=== PATIENT | female | born 1980 | race Hispanic/Latino ===

== ENCOUNTER 2020-09-29 10:00 | Inpatient (IN) | payer OTHER ==
[~2020-09-29] VITALS: Ht 149.9 cm; Wt 69.4 kg
[2020-10-03] MEDS ORDERED: CEFAZOLIN SODIUM 1 GM VIAL IVP PRN (05:45)
[2020-10-03 06:49] LABS: HEMATOCRIT 33.7 % (36-48); MEAN CORPUSCULAR HEMOGLOBIN 29.5 pg (27.0-33.0); MEAN CORPUSCULAR HGB CONC 32.3 g/dL (32.0-36.0); MEAN CORPUSCULAR VOLUME 91.3 fL (79-99); RED BLOOD CELL COUNT(AUTO) 3.69 MIL/uL (4.00-5.50); RED CELL DISTRIBUTION WIDTH 16.2 % (11.0-15.5); WHITE BLOOD COUNT (AUTO) 11.8 K/uL (4.8-10.8)
[2020-10-03 06:53] VITALS: BP 102/58
[2020-10-03] MEDS: LACTATED RINGERS 1000ML 1,000 ML IV SCH (07:19)
[2020-10-03] MEDS ORDERED: DURAMORPH PF1 MG/ML 10ML AMP IV ONE (07:27)
[2020-10-03] MEDS ORDERED: ONDANSETRON HCL 4 MG/2 ML VIAL ONE (07:41)
[2020-10-03] MEDS ORDERED: MIDAZOLAM HCL 1 MG/ML 2ML VIAL ONE (07:49)
[2020-10-03] MEDS ORDERED: EPHEDRINE SULFATE 50 MG/ML AMPULE ONE (07:54)
[2020-10-03] MEDS ORDERED: OXYTOCIN-LR 20 UNITS/1000 ML 1,000 ML IV PRN (08:45)
[2020-10-03] MEDS ORDERED: SODIUM CHLORIDE 0.9% 10 ML VIAL IVP PRN (08:45)
[2020-10-03 10:45] VITALS: BP 107/64
[2020-10-03] MEDS ORDERED: ONDANSETRON HCL 4 MG/2 ML VIAL IVP PRN (11:45)
[2020-10-03] MEDS ORDERED: LORATADINE 10 MG TABLET PO PRN (11:45)
[2020-10-03] MEDS ORDERED: DiphenhydrAMINE HCL 50 MG/ML VIAL IVP PRN (11:45)
[2020-10-03] MEDS ORDERED: EPHEDRINE SULFATE 50 MG/ML AMPULE IVP PRN (11:45)
[2020-10-03] MEDS ORDERED: NALOXONE HCL 0.4 MG/1 ML ML IVP PRN (11:45)
[2020-10-03] MEDS ORDERED: PREN1TAB63 PO (15:40)
[2020-10-03] MEDS: DEXTROSE 5 %-0.45 % NACL 1,000 ML IV PRN ×2 (15:47→22:32)
[2020-10-03 16:30] VITALS: BP 100/60
[2020-10-03] MEDS: IBUPROFEN 800 MG TAB PO SCH (16:48)
[2020-10-03 18:26] VITALS: BP 99/49
[2020-10-03] MEDS: PROMETHAZINE HCL 25 MG/ML 1ML AMPULE IM PRN (22:42)
[2020-10-03] MEDS: MEPERIDINE-PF 75 MG/ML SYG IM PRN (22:44)
[2020-10-04 00:03] VITALS: BP 98/53
[2020-10-04] MEDS: IBUPROFEN 800 MG TAB PO SCH ×4 (01:09→16:44)
[2020-10-04 03:45] VITALS: BP 91/46
[2020-10-04] MEDS: PROMETHAZINE HCL 25 MG/ML 1ML AMPULE IM PRN (04:14)
[2020-10-04] MEDS: MEPERIDINE-PF 75 MG/ML SYG IM PRN (04:15)
[2020-10-04] MEDS: DEXTROSE 5 %-0.45 % NACL 1,000 ML IV PRN (05:26)
[2020-10-04] MEDS: LACTATED RINGERS 1000ML 1,000 ML IV SCH (05:45)
[2020-10-04 06:55] LABS: HEMATOCRIT 30.8 % (36-48); MEAN CORPUSCULAR HEMOGLOBIN 30.6 pg (27.0-33.0); MEAN CORPUSCULAR HGB CONC 32.5 g/dL (32.0-36.0); MEAN CORPUSCULAR VOLUME 94.2 fL (79-99); RED BLOOD CELL COUNT(AUTO) 3.27 MIL/uL (4.00-5.50); RED CELL DISTRIBUTION WIDTH 16.6 % (11.0-15.5); WHITE BLOOD COUNT (AUTO) 12.8 K/uL (4.8-10.8)
[2020-10-04 07:21] VITALS: BP 82/51
[2020-10-04] MEDS ORDERED: ACETAMINOPHEN EXTRA STRENGTH 500 MG TABLET PO PRN (08:00)
[2020-10-04] MEDS ORDERED: HYDROCODONE/ACETAMINOPHEN 5/325 MG TAB PO PRN (08:00)
[2020-10-04] MEDS ORDERED: DIPH,PERTUSS(ACELL),TET VAC/PF 0.5 ML VIAL IM SCH (08:00)
[2020-10-04] MEDS ORDERED: MEASLES/MUMPS/RUBELLA VACCINE, LIVE 0.5 ML/VIAL SQ SCH (08:00)
[2020-10-04] MEDS ORDERED: BISACODYL 10 MG SUPP.RECT RC PRN (08:00)
[2020-10-04 08:14] LABS: HEPATITIS Bs ANTIGEN SCREEN P Negative (Negative)
[2020-10-04] MEDS: DOCUSATE SODIUM 100 MG CAP PO SCH ×2 (09:16→21:53)
[2020-10-04] MEDS: SIMETHICONE 80 MG TAB.CHEW PO PRN ×3 (09:16→21:52)
[2020-10-04 11:00] VITALS: BP 97/44
[2020-10-04] MEDS: ACETAMINOPHEN-CODEINE 300/30MG TAB PO PRN (14:11)
[2020-10-04 15:50] VITALS: BP 96/51
[2020-10-04 18:10] VITALS: BP 93/51
[2020-10-05 00:13] VITALS: BP 103/61
[2020-10-05 03:18] VITALS: BP 106/60
[2020-10-05] MEDS: ACETAMINOPHEN-CODEINE 300/30MG TAB PO PRN (04:21)
[2020-10-05 07:12] VITALS: BP 97/62
[2020-10-05] MEDS: DOCUSATE SODIUM 100 MG CAP PO SCH (08:24)
[2020-10-05] MEDS: SIMETHICONE 80 MG TAB.CHEW PO PRN (08:24)
[2020-10-05] MEDS: IBUPROFEN 800 MG TAB PO SCH ×2 (08:25)
[2020-10-05 11:29] VITALS: BP 108/61
[2020-10-05] MEDS ORDERED: ACET1TAB25 PO (11:50)
== END 2020-10-05 12:10 | disposition home or self-care (01) | DRG 785 ==
LOC: LDH 10-03 05:38 → WSH 10-03 10:21
PROVIDERS: ADMIT Specialist; ATTEND Specialist
PROC: 10D00Z1 Extraction of Products of Conception, Low, Open Approach (ICD-10-PCS; 2020-10-03)
PROC: 0UB70ZZ Excision of Bilateral Fallopian Tubes, Open Approach (ICD-10-PCS; principal; 2020-10-03 07:30)
PROC: 3E0234Z Introduction of Serum, Toxoid and Vaccine into Muscle, Percutaneous Approach (ICD-10-PCS; 2020-10-04)
DX: O34.211 Maternal care for low transverse scar from previous cesarean delivery (principal); O99.824 Streptococcus B carrier state complicating childbirth; Z3A.39 39 weeks gestation of pregnancy; Z37.0 Single live birth; Z30.2 Encounter for sterilization; Z23 Encounter for immunization
CPT/HCPCS: 36415; 59510; 85027; 86592; 86850; 86900; 86901; 87340; 90715; A4344; G0378; J0690; J1200; J2175; J2250; J2274; J2405; J2550; J3490; J7120; U0003

== ENCOUNTER 2021-01-20 12:54 | Inpatient (IN) | payer BC, OTHER ==
[~2021-01-20] VITALS: Ht 147.3 cm; Wt 58.1 kg
[~2021-01-20 12:54] MED LIST: ACET1TAB25 PO; PREN1TAB63 PO
[2021-01-20 12:56] VITALS: BP 116/63
[2021-01-20 13:36] LABS: BASOPHILS % (AUTO) 0.2 % (0.0-5.0); EOSINOPHILS % (AUTO) 0.8 % (0.0-8.0); HEMATOCRIT 41.9 % (36-48); LYMPHOCYTES % (AUTO) 6.4 % (21.0-51.0); MEAN CORPUSCULAR HEMOGLOBIN 31.1 pg (27.0-33.0); MEAN CORPUSCULAR HGB CONC 34.4 g/dL (32.0-36.0); MEAN CORPUSCULAR VOLUME 90.5 fL (79-99); MONOCYTES % (AUTO) 3.7 % (3.0-13.0); NEUTROPHILS % (AUTO) 88.4 % (40.0-77.0); PLATELET COUNT (AUTO) 407 K/uL (130-400); RED BLOOD CELL COUNT(AUTO) 4.63 MIL/uL (4.00-5.50); RED CELL DISTRIBUTION WIDTH 13.4 % (11.0-15.5); WHITE BLOOD COUNT (AUTO) 20.2 K/uL (4.8-10.8)
[2021-01-20 13:45] LABS: CREATININE 0.7 mg/dL (0.5-1.5); POTASSIUM 3.9 mmol/L (3.5-5.1)
[2021-01-20 13:46] LABS: BILIRUBIN,URINE Negative (NEGATIVE); COLOR,URINE Yellow (YELLOW); GLUCOSE, URINE (UA) Negative (NEGATIVE); KETONES,URINE Negative (NEGATIVE); LEUKOCYTE ESTERASE ,URINE Trace (NEGATIVE); NITRATE,URINE Negative (NEGATIVE); OCCULT BLOOD,URINE Negative (NEGATIVE); PROTEIN,URINE Trace mg/dL (NEGATIVE)
[2021-01-20 13:49] LABS: ALBUMIN 4.1 g/dL (3.5-5.0); BILIRUBIN,TOTAL 1.2 mg/dL (0.2-1.0); TOTAL PROTEIN, SERUM 8.5 g/dL (6.0-8.3)
[2021-01-20 14:22] LABS: APPEARANCE,URINE SLIGHTLY CLOUDY (CLEAR)
[2021-01-20 14:23] LABS: AMORPHOUS SEDIMENT,UR Moderate /LPF (None Seen); BACTERIA,URINE Rare /HPF (None Seen); RBC,URINE 0-1 /HPF (0-1); SQUAMOUS EPITHELIAL CELL,UR Rare /HPF (0-2); WBC,URINE 0-1 /HPF (0-1)
[2021-01-20] MEDS ORDERED: KETOROLAC 30MG VIAL (30MG/ML) IV ONE (14:30)
[2021-01-20] MEDS: ZOSYN 3.375GM +NS 50ML IV SCH ×2 (15:34→20:46)
[2021-01-20 16:31] VITALS: BP 105/68
[2021-01-20] MEDS ORDERED: ACETAMINOPHEN 325 MG TAB PO PRN (17:00)
[2021-01-20] MEDS ORDERED: GUAIFENESIN-DM 200/20 MG 10 ML PO PRN (17:00)
[2021-01-20] MEDS ORDERED: MORPHINE 2 MG SYG IV PRN (17:00)
[2021-01-20] MEDS ORDERED: DIPHENHYDRAMINE HCL 25 MG CAPSULE PO PRN (17:00)
[2021-01-20] MEDS ORDERED: LACTULOSE 20 GM/30 ML UDCUP PO PRN (17:00)
[2021-01-20] MEDS ORDERED: MORPHINE 4 MG SYG IV PRN (17:00)
[2021-01-20] MEDS ORDERED: ONDANSETRON 4MG INJ IV PRN (17:00)
[2021-01-20 19:50] VITALS: BP 110/69
[2021-01-20] MEDS: FAMOTIDINE 20MG VIAL IV SCH (20:46)
[2021-01-20 23:44] VITALS: BP 108/60
[2021-01-21 04:01] VITALS: BP 109/60
[2021-01-21] MEDS: ZOSYN 3.375GM +NS 50ML IV SCH ×3 (05:48→21:22)
[2021-01-21] MEDS: LACTATED RINGERS 1000ML 1,000 ML IV SCH ×2 (06:04→13:02)
[2021-01-21 06:19] LABS: BASOPHILS % (AUTO) 0.3 % (0.0-5.0); EOSINOPHILS % (AUTO) 4.7 % (0.0-8.0); HEMATOCRIT 40.8 % (36-48); MEAN CORPUSCULAR HEMOGLOBIN 30.7 pg (27.0-33.0); MEAN CORPUSCULAR HGB CONC 33.3 g/dL (32.0-36.0); MEAN CORPUSCULAR VOLUME 92.1 fL (79-99); NEUTROPHILS % (AUTO) 69.6 % (40.0-77.0); PLATELET COUNT (AUTO) 374 K/uL (130-400); RED BLOOD CELL COUNT(AUTO) 4.43 MIL/uL (4.00-5.50); RED CELL DISTRIBUTION WIDTH 13.4 % (11.0-15.5); WHITE BLOOD COUNT (AUTO) 10.2 K/uL (4.8-10.8)
[2021-01-21 06:40] LABS: ALBUMIN 3.4 g/dL (3.5-5.0); BILIRUBIN,TOTAL 1.5 mg/dL (0.2-1.0); CREATININE 0.8 mg/dL (0.5-1.5); TOTAL PROTEIN, SERUM 7.4 g/dL (6.0-8.3)
[2021-01-21 08:39] VITALS: BP 122/77
[2021-01-21] MEDS: ENOXAPARIN SODIUM 40 MG/0.4 ML SYRINGE SQ SCH (10:04)
[2021-01-21] MEDS: FAMOTIDINE 20MG VIAL IV SCH ×2 (10:04→21:22)
[2021-01-21 11:22] VITALS: BP 125/72
[2021-01-21 15:35] VITALS: BP 102/61
[2021-01-21 16:01] LABS: ALBUMIN 3.4 g/dL (3.5-5.0); BILIRUBIN,DIRECT 0.3 mg/dL (0.0-0.3); BILIRUBIN,TOTAL 1.6 mg/dL (0.2-1.0)
[2021-01-21 20:11] VITALS: BP 114/73
[2021-01-22] VITALS (7 sets, daily range): BP systolic 94–131; BP diastolic 43–80
[2021-01-22] MEDS: ZOSYN 3.375GM +NS 50ML IV SCH ×3 (06:39→21:20)
[2021-01-22 06:40] LABS: BASOPHILS % (AUTO) 0.3 % (0.0-5.0); EOSINOPHILS % (AUTO) 9.1 % (0.0-8.0); HEMATOCRIT 39.5 % (36-48); LYMPHOCYTES % (AUTO) 24.4 % (21.0-51.0); MEAN CORPUSCULAR HEMOGLOBIN 31.2 pg (27.0-33.0); MEAN CORPUSCULAR HGB CONC 33.9 g/dL (32.0-36.0); MEAN CORPUSCULAR VOLUME 92.1 fL (79-99); MONOCYTES % (AUTO) 5.3 % (3.0-13.0); NEUTROPHILS % (AUTO) 60.6 % (40.0-77.0); PLATELET COUNT (AUTO) 353 K/uL (130-400); RED BLOOD CELL COUNT(AUTO) 4.29 MIL/uL (4.00-5.50); RED CELL DISTRIBUTION WIDTH 13.4 % (11.0-15.5); WHITE BLOOD COUNT (AUTO) 9.2 K/uL (4.8-10.8)
[2021-01-22] MEDS: LACTATED RINGERS 1000ML 1,000 ML IV SCH ×2 (06:40→08:58)
[2021-01-22 06:54] LABS: ALBUMIN 3.3 g/dL (3.5-5.0); BILIRUBIN,TOTAL 1.1 mg/dL (0.2-1.0); CREATININE 0.8 mg/dL (0.5-1.5); POTASSIUM 3.7 mmol/L (3.5-5.1); TOTAL PROTEIN, SERUM 7.2 g/dL (6.0-8.3)
[2021-01-22] MEDS: ENOXAPARIN SODIUM 40 MG/0.4 ML SYRINGE SQ SCH (08:40)
[2021-01-22] MEDS: FAMOTIDINE 20MG VIAL IV SCH ×2 (08:40→21:20)
[2021-01-22 14:09] LABS: HEPATITIS A ANTIBODY IGM Negative (Negative); HEPATITIS B CORE IGM Negative (Negative); HEPATITIS Bs ANTIGEN SCREEN P Negative (Negative)
[2021-01-23] VITALS (25 sets, daily range): BP systolic 102–150; BP diastolic 57–95
[2021-01-23] MEDS: ZOSYN 3.375GM +NS 50ML IV SCH ×3 (06:30→22:52)
[2021-01-23 09:02] LABS: ALBUMIN 3.5 g/dL (3.5-5.0); BILIRUBIN,TOTAL 0.8 mg/dL (0.2-1.0); CREATININE 0.9 mg/dL (0.5-1.5); POTASSIUM 3.8 mmol/L (3.5-5.1); TOTAL PROTEIN, SERUM 7.6 g/dL (6.0-8.3)
[2021-01-23 09:22] LABS: BASOPHILS % (AUTO) 0.3 % (0.0-5.0); EOSINOPHILS % (AUTO) 5.8 % (0.0-8.0); HEMATOCRIT 39.2 % (36-48); LYMPHOCYTES % (AUTO) 18.3 % (21.0-51.0); MEAN CORPUSCULAR HEMOGLOBIN 30.9 pg (27.0-33.0); MEAN CORPUSCULAR HGB CONC 33.4 g/dL (32.0-36.0); MEAN CORPUSCULAR VOLUME 92.5 fL (79-99); MONOCYTES % (AUTO) 5.2 % (3.0-13.0); NEUTROPHILS % (AUTO) 70.1 % (40.0-77.0); PLATELET COUNT (AUTO) 341 K/uL (130-400); RED BLOOD CELL COUNT(AUTO) 4.24 MIL/uL (4.00-5.50); RED CELL DISTRIBUTION WIDTH 13.2 % (11.0-15.5); WHITE BLOOD COUNT (AUTO) 11.2 K/uL (4.8-10.8)
[2021-01-23] MEDS: FAMOTIDINE 20MG VIAL IV SCH ×2 (10:18→20:53)
[2021-01-23] MEDS ORDERED: LACTATED RINGERS 1000ML 1,000 ML IV ONE (10:53)
[2021-01-23] MEDS ORDERED: SUCCINYLCHOLINE CHLORIDE 20 MG/ML 10 ML VIAL ONE (12:07)
[2021-01-23] MEDS ORDERED: DEXAMETHASONE SOD PHOSPHATE 10MG/ML 1ML VIAL ONE (12:07)
[2021-01-23] MEDS ORDERED: ONDANSETRON 4MG INJ ONE (12:07)
[2021-01-23] MEDS ORDERED: GLYCOPYRROLATE 1 MG/5 ML SYRINGE ONE (12:07)
[2021-01-23] MEDS ORDERED: FENTANYL CITRATE PF 50 MCG/1 ML 2ML VIAL ONE ×2 (12:07→13:24)
[2021-01-23] MEDS ORDERED: LIDOCAINE PF 100MG/5ML (2%) SYRINGE 5ML ONE (12:07)
[2021-01-23] MEDS ORDERED: BUPIVACAINE/PF 0.5% 30ML VIAL ONE (12:08)
[2021-01-23] MEDS ORDERED: MIDAZOLAM HCL 1 MG/ML 2ML VIAL ONE (12:08)
[2021-01-23] MEDS ORDERED: PROPOFOL 10 MG/ML 20ML VIAL IV ONE (12:08)
[2021-01-23] MEDS ORDERED: MEPERIDINE-PF 25 MG/ML SYG ONE ×2 (12:08→13:52)
[2021-01-23] MEDS ORDERED: NEOSTIGMINE 5MG/5ML SYR IV ONE (12:08)
[2021-01-23] MEDS ORDERED: ROCURONIUM 10MG/1ML SYR 10 MG/ML ML ONE (12:08)
[2021-01-23] MEDS ORDERED: OCTYL 2-CYANOACRYLATE 1 EACH TP ONE ×2 (12:58→13:29)
[2021-01-23] MEDS: KETOROLAC 15MG/ML VIAL (15MG/ML) IV PRN ×2 (15:29→21:03)
[2021-01-23] MEDS ORDERED: MORPHINE 4 MG SYG IVP PRN (17:00)
[2021-01-23] MEDS: SIMETHICONE 80 MG TAB.CHEW PO SCH (20:52)
[2021-01-24 04:06] VITALS: BP 105/52
[2021-01-24 05:08] LABS: BASOPHILS % (AUTO) 0.1 % (0.0-5.0); HEMATOCRIT 37.6 % (36-48); LYMPHOCYTES % (AUTO) 11.9 % (21.0-51.0); MEAN CORPUSCULAR HGB CONC 33.5 g/dL (32.0-36.0); MEAN CORPUSCULAR VOLUME 92.6 fL (79-99); NEUTROPHILS % (AUTO) 83.6 % (40.0-77.0); PLATELET COUNT (AUTO) 369 K/uL (130-400); RED BLOOD CELL COUNT(AUTO) 4.06 MIL/uL (4.00-5.50); RED CELL DISTRIBUTION WIDTH 13.2 % (11.0-15.5); WHITE BLOOD COUNT (AUTO) 14.1 K/uL (4.8-10.8)
[2021-01-24 05:26] LABS: ALBUMIN 3.3 g/dL (3.5-5.0); CREATININE 0.9 mg/dL (0.5-1.5); POTASSIUM 3.9 mmol/L (3.5-5.1); TOTAL PROTEIN, SERUM 7.6 g/dL (6.0-8.3)
[2021-01-24] MEDS: ZOSYN 3.375GM +NS 50ML IV SCH (06:25)
[2021-01-24 07:20] VITALS: BP 107/64
[2021-01-24] MEDS: FAMOTIDINE 20MG VIAL IV SCH (08:19)
[2021-01-24] MEDS: KETOROLAC 15MG/ML VIAL (15MG/ML) IV PRN (08:19)
[2021-01-24] MEDS: SIMETHICONE 80 MG TAB.CHEW PO SCH (08:19)
[2021-01-24 12:00] VITALS: BP 100/51
[2021-01-26] MEDS ORDERED: DOCU-116 PO (15:55)
[2021-01-26] MEDS ORDERED: ACET1TAB25 PO (15:55)
== END 2021-01-24 13:40 | disposition home or self-care (01) | DRG 419 ==
LOC: EDH 12:54 → EDHIP 16:37 → 3DH 18:37
PROVIDERS: ADMIT Internal Medicine; ATTEND Internal Medicine
PROC: 0FT44ZZ Resection of Gallbladder, Percutaneous Endoscopic Approach (ICD-10-PCS; principal; 2021-01-23 12:45)
DX: K80.00 Calculus of gallbladder with acute cholecystitis without obstruction (principal); J45.909 Unspecified asthma, uncomplicated; D72.829 Elevated white blood cell count, unspecified; K82.8 Other specified diseases of gallbladder; R79.89 Other specified abnormal findings of blood chemistry; Z20.822 Contact with and (suspected) exposure to COVID-19; Z81.8 Family history of other mental and behavioral disorders
CPT/HCPCS: 36415; 74181; 76705; 78226; 80053; 80074; 80076; 81001; 82150; 83605; 83690; 84145; 85025; 87040; 87426; 93005; A9537; G0378; J0330; J1100; J1650; J1885; J2001; J2175; J2250; J2405; J2543; J2704; J2710; J3010; J3490; J7030; J7120

== ENCOUNTER 2022-10-01 06:40 | Day surgery (SDC) | payer OTHER, BC ==
[2022-09-27 09:45] LABS: APPEARANCE,URINE CLEAR (CLEAR); BILIRUBIN,URINE NEGATIVE (NEGATIVE); COLOR,URINE LIGHT-YELLOW (YELLOW); GLUCOSE, URINE (UA) NEGATIVE (NEGATIVE); KETONES,URINE NEGATIVE (NEGATIVE); LEUKOCYTE ESTERASE ,URINE NEGATIVE Leu/uL (NEGATIVE); NITRATE,URINE NEGATIVE (NEGATIVE); OCCULT BLOOD,URINE NEGATIVE (NEGATIVE); PH,URINE 7.5 (5.0-8.0); PROTEIN,URINE NEGATIVE (NEGATIVE); UROBILINOGEN,URINE 0.2 mg/dL (0.2-1.0)
[2022-09-27 09:58] VITALS: BP 119/75
[2022-09-27 10:11] LABS: BASOPHILS % (AUTO) 0.4 % (0.0-5.0); EOSINOPHILS % (AUTO) 7.1 % (0.0-8.0); HEMATOCRIT 41.5 % (36-48); MEAN CORPUSCULAR HEMOGLOBIN 29.5 pg (27.0-33.0); MONOCYTES % (AUTO) 3.6 % (3.0-13.0); NEUTROPHILS % (AUTO) 68.6 % (40.0-77.0); PLATELET COUNT (AUTO) 414 K/uL (130-400); RED BLOOD CELL COUNT(AUTO) 4.51 MIL/uL (4.00-5.50); RED CELL DISTRIBUTION WIDTH 12.8 % (11.0-15.5); WHITE BLOOD COUNT (AUTO) 9.3 K/uL (4.8-10.8)
[2022-09-27 10:26] LABS: ALBUMIN 4.1 g/dL (3.5-5.0); CREATININE 0.8 mg/dL (0.5-1.5); POTASSIUM 3.8 mmol/L (3.5-5.1); TOTAL PROTEIN, SERUM 8.6 g/dL (6.0-8.3)
[~2022-10-01] VITALS: Ht 148.6 cm; Wt 52.9 kg
[2022-10-01 06:45] VITALS: BP 106/65
[2022-10-01] MEDS ORDERED: LIDOCAINE HCL 1% 20 ML VIAL ONE (08:20)
[2022-10-01] MEDS ORDERED: PROPOFOL 10 MG/ML 20ML VIAL IV ONE ×2 (08:20)
[2022-10-01] MEDS ORDERED: LIDOCAINE HCL 2% JELLY 5 ML TP STA (08:45)
[2022-10-01] MEDS ORDERED: MEPERIDINE-PF 25 MG/ML SYG ONE (08:48)
[2022-10-01 09:05] VITALS: BP 106/65
[2022-10-01 09:20] VITALS: BP 104/68
[2022-10-01 09:35] VITALS: BP 112/72
== END 2022-10-01 09:45 | disposition home or self-care (01) ==
LOC: DAH 06:40
PROVIDERS: ATTEND Student in an Organized Health Care Education/Training Program
DX: K64.2 Third degree hemorrhoids (principal); Z20.822 Contact with and (suspected) exposure to COVID-19; K62.89 Other specified diseases of anus and rectum; J45.909 Unspecified asthma, uncomplicated; Z98.890 Other specified postprocedural states; Z79.899 Other long term (current) drug therapy; Z90.49 Acquired absence of other specified parts of digestive tract; Z98.51 Tubal ligation status; Z98.891 History of uterine scar from previous surgery
CPT/HCPCS: 87426; 80053; 84703; 85025; 81003; 36415; 45350; 81025; A6260; J2704 ×2; J2175; A4620; A4215 ×2; A4223; A4657 ×2; A4222; A4221; A4663; J7030; A4606

== ENCOUNTER → 2023-11-20 | Outpatient (CLI) | payer OTHER, BC | END | disposition home or self-care (01) | LOC: RAH 13:27 | PROVIDERS: ATTEND Internal Medicine | DX: Z12.31 Encounter for screening mammogram for malignant neoplasm of breast (principal); R92.343 Mammographic extreme density, bilateral breasts | CPT/HCPCS: 77067 ==